=== PATIENT | female | born 1945 | race Caucasian/White ===

== ENCOUNTER 2018-08-17 15:19 | Outpatient (REF) | payer MEDICARE, OTHER, SELFPAY ==
--- NOTE | 2018-08-17 14:40 | PAPFT_PTH ---
PATIENT: MARTI DREW LOC: [facility] U#:[id number] AGE/SX: 72/F ROOM: RE08/17/[address]: Arielle Magallanes : 1945 BED: DIS: 08/17/2018 SPEC #: [id number] RECD: 08/17/18 18:08 STATUS: NNAMDI REEnid #: [id number] NINFA: 08/17/18 14:[address]: Arielle Magallanes DEPT: [facility] Cytology RECD BY: Betty Wallace Tissues: 1 - CX/ENDOCX FOR PAP SMEARS Procedures: PAP THIN PREP/[facility] Screening HPV DNA PROBE Comments: [id number]
== END 2018-08-17 15:39 ==
LOC: LBN 15:19
PROVIDERS: Visit Provider Obstetrics & Gynecology Gynecology
DX: Z12.4 Encounter for screening for malignant neoplasm of cervix (principal); Z11.51 Encounter for screening for human papillomavirus (HPV)
CPT/HCPCS: 88142; 87624